=== PATIENT | female | born 1995 | race Two or more races ===

== ENCOUNTER 2016-12-23 12:32 | Emergency (ER) | payer MEDICAID ==
[~2016-12-23] VITALS: Ht 165.1 cm; Wt 89.5 kg
[2016-12-23] MEDS ORDERED: SODIUM CHLORIDE 0.9% 1,000 ML IV ONE (12:49)
[2016-12-23] MEDS ORDERED: SODIUM CHLORIDE 0.9% 1,000ML IVBOLUS ONE (13:00)
[2016-12-23] MEDS ORDERED: SODIUM CHLORIDE FLUSH 10ML SYR IVF ONE (13:00)
[2016-12-23] MEDS ORDERED: ONDANSETRON 2MG/ML, 2ML IVPush ONE (13:00)
[2016-12-23] MEDS ORDERED: ONDANSETRON 2MG/ML, 2ML ONE (13:20)
[2016-12-23 13:26] LABS: BLOOD UREA NITROGEN 7 mg/dL (7-18)
[2016-12-23 14:22] VITALS: BP 109/61
[2016-12-23 14:32] LABS: PATH.CAST-FLAG NOT PRESENT; SPERM-FLAG NOT PRESENT; SRC-FLAG NOT PRESENT; XTAL-FLAG NOT PRESENT; YLC-FLAG NOT PRESENT
[2016-12-23] MEDS ORDERED: KETOROLAC 30 MG/1 ML ONE (15:30)
[2016-12-23] MEDS ORDERED: KETOROLAC 30 MG/1 ML IVPush ONE (15:30)
== END 2016-12-23 17:14 | disposition home or self-care (01) ==
LOC: ED 15:29
DX: M94.0 Chondrocostal junction syndrome [Tietze] (principal); N30.00 Acute cystitis without hematuria; J45.909 Unspecified asthma, uncomplicated
CPT/HCPCS: 36415; 71020; 80048; 81001; 82040; 83690; 84703; 85025; 85379; 87077; 87086; 96361; 96374; 96375; 99285; J1885; J2405; J7030; 87186

== ENCOUNTER 2017-03-24 13:31 | Emergency (ER) | payer MEDICAID ==
[~2017-03-24] VITALS: Ht 165.1 cm; Wt 88.8 kg
[2017-03-24] MEDS ORDERED: ONDANSETRON 2MG/ML, 2ML ONE (14:21)
[2017-03-24] MEDS ORDERED: KETOROLAC 30 MG/1 ML ONE (14:21)
[2017-03-24] MEDS ORDERED: ONDANSETRON 2MG/ML, 2ML IVPush ONE (14:30)
[2017-03-24] MEDS ORDERED: SODIUM CHLORIDE FLUSH 10ML SYR IVF ONE (14:30)
[2017-03-24] MEDS ORDERED: KETOROLAC 30 MG/1 ML IVPush ONE (14:30)
[2017-03-24 15:22] LABS: HEMATOCRIT 41.7 % (34.6-47.8); HEMOGLOBIN 14.4 g/dL (11.7-16.4); WHITE BLOOD COUNT 14.2 x10^3/uL (3.4-10)
[2017-03-24] MEDS ORDERED: ACETAMINOPHEN 325 MG TABLET PO ONE (15:30)
[2017-03-24 15:33] LABS: ASPARTATE AMINO TRANSFERASE 12 U/L (15-37); BLOOD UREA NITROGEN 10 mg/dL (7-18)
[2017-03-24 16:29] VITALS: BP 113/78
== END 2017-03-24 16:31 | disposition home or self-care (01) ==
LOC: ED 14:20
DX: O23.11 Infections of bladder in pregnancy, first trimester (principal); Z3A.01 Less than 8 weeks gestation of pregnancy
CPT/HCPCS: 36415; 76830; 80053; 81001; 84703; 85025; 87077; 87086; 87186; 96374; 99285; J2405